=== PATIENT | female | born 1980 | race Caucasian/White ===

== ENCOUNTER 2016-08-01 12:27 | Outpatient (CLI) | payer OTHER ==
[2012-10-06 12:13] VITALS: TEMP 98.4
[2016-08-01 13:52] LABS: FERRITIN 19.94 ng/mL (4.63-204.00)
== END 2016-08-01 12:28 | disposition home or self-care (01) ==
LOC: LAB 12:27
PROVIDERS: ATTEND Nurse Practitioner Family
DX: D64.9 Anemia, unspecified (principal)
CPT/HCPCS: 36415; 82607; 82728; 83540; 83550; 84466

== ENCOUNTER 2016-08-08 08:58 | Outpatient (CLI) ==
[2012-10-06 12:13] VITALS: TEMP 98.4
--- NOTE | 2016-08-08 10:15 | CT ---
EXAM: CT of the abdomen and pelvis without and with IV contrast HISTORY: Generalized abdominal pain COMPARISON: 06/19/2015 ultrasound TECHNIQUE: CT of the abdomen and pelvis without and with IV contrast FINDINGS: The liver, gallbladder, spleen, adrenals, kidneys and pancreas enhance normally. No abnormal small bowel dilation is seen. The colon is unremarkable. The appendix is not abnormally dilated. No free air or free fluid is seen. A 2.7 cm right adnexal probable cyst is seen. Low density is see n extending around the cervix which could represent a pessary. There is slight prominence of the lef t pelvic veins. There is mild L5-S1 degenerative disc disease. A tiny fat containing umbilical her castillo is seen. IMPRESSION: No acute intra-abdominal findings. 2.7 cm probable right ovarian cyst.
== END 2016-08-08 08:59 | disposition home or self-care (01) ==
LOC: RAD 08:58
PROVIDERS: ATTEND Nurse Practitioner Family
DX: R10.84 Generalized abdominal pain (principal)

== ENCOUNTER 2017-03-18 07:55 | Day surgery (SDC) ==
[2017-03-18 08:51] LABS: URINE PREGNANCY INTERNAL QC INTERNAL QC VALID
[2017-03-18] MEDS ORDERED: DIPRIVAN 20 ML VIAL IVP ONE (10:06)
[2017-03-18] MEDS ORDERED: LIDOCAINE HCL 2% LUER-JET ONE (10:06)
[2017-03-18] MEDS ORDERED: VERSED ONE (10:06)
[2017-03-18 14:08] VITALS: BP 122/81; TEMP 97.7
--- NOTE | 2017-03-19 12:38 | OP ---
INDICATIONS FOR PROCEDURE: 36-year-old female presents for endoscopy evaluation. She has been having long-standing reflux disease manifested by heartburn. She had a little bit of epigastric discomfort. She is scheduled for endoscopy investigation. She does have globus sensation at times too. MEDICATIONS: SEE ANESTHESIA NOTES. PROCEDURE: ENDOSCOPY, RALPH BIOPSY. REPORT: The risks, benefits, alternatives and limitations were discussed in detail with the patient. Informed consent was obtained. After adequate sedation was achieved, the video endoscope was introduced in the posterior pharynx and esophagus under direct vision and easily advanced down to the second portion of the duodenum. I then slowly withdrew. The duodenal mucosa appeared unremarkable as did the duodenal bulb. The antrum and body were relatively unremarkable. Two biopsies from the antrum, one from the body obtained for H. Pylori testing. The scope was retroflexed to look at the cardia and fundus which was unremarkable. The scope was anteflexed and withdrawn back through the esophagus and this was normal. GE junction was at the top of the gastric folds at the diaphragmatic hiatus. The patient tolerated the procedure well with stable vital signs and pulse oximetry throughout. IMPRESSION: 1. NORMAL ENDOSCOPY EXAM. RECOMMENDATIONS: 1. Strict reflux precautions and I will go over these with the patient again. 2. Await H. Pylori, if positive will initiate treatment. 3. Will see her back in the office as needed. CC: DR. JESSICA KRISHNAN
== END 2017-03-18 11:40 | disposition home or self-care (01) ==
LOC: SURG 07:55
PROVIDERS: ATTEND Internal Medicine Gastroenterology
DX: K21.9 Gastro-esophageal reflux disease without esophagitis (principal); R10.13 Epigastric pain; R12 Heartburn
CPT/HCPCS: 81025; 87339

== ENCOUNTER 2017-05-16 12:22 | Outpatient (CLI) ==
[2012-10-06 12:13] VITALS: TEMP 98.4
--- NOTE | 2017-05-16 14:33 | US ---
EXAM: THYROID ULTRASOUND HISTORY: Thyroid nodule FINDINGS: Ultrasound thyroid. Real time mays-scale ultrasound and color Doppler imaging. COMPARISON: 08/04/2014 The right thyroid lobe measures 5.9 x 2.1 x 1.6 cm. The isthmus measures 0.5 cm. The left thyroid lobe measures 5.3 x 1.7 x 1.3 cm. There were approximately seven nodules identified, four on the right and three on the left. These no dules were tiny and cystic (about 3 mm, with exception the two inferior right lobe entities which camelia sured 0.8 x 0.8 x 0.8 and 0.7 x 0.4 x 0.8 cm. These latter two nodules were solid and hypoechoic wit h no internal atypia. The thyroid tissue was otherwise homogeneous with normal glandular blood flow. When compared to the prior study, the gland size appears stable. The two hypoechoic solid nodules on the right mentioned in the above report were not seen previously possibly secondary to differences i n scanning technique or interval development. IMPRESSION: Several scattered bilateral nodules most which are tiny and cystic. There may have been interval development of two small hypoechoic solid nodules inferiorly on the right versus not seen pr eviously secondary to differences in scanning technique. Overall gland size is stable.
== END 2017-05-16 12:23 | disposition home or self-care (01) ==
LOC: RAD 12:22
PROVIDERS: ATTEND Nurse Practitioner Family
DX: Z00.00 Encounter for general adult medical examination without abnormal findings (principal); E04.1 Nontoxic single thyroid nodule; R13.10 Dysphagia, unspecified
CPT/HCPCS: 36415; 80053; 80061; 84443; 85025

== ENCOUNTER 2018-01-06 08:20 | Outpatient (CLI) ==
[2012-10-06 12:13] VITALS: TEMP 98.4
--- NOTE | 2018-01-06 10:29 | MRI ---
EXAM: Brain MRI without contrast. HISTORY: Headache. COMPARISON: None. TECHNIQUE: Multiplanar, multisequence MR images were acquired of the brain without contrast. FINDINGS: The midline structures are central and the craniocervical junction is unremarkable. The v entricles and sulci are normal in size and configuration. There are no abnormal extra-axial fluid co llections. The brain parenchyma has no diffusion restriction to suggest acute hypoperfusion or infarction. Ther e is a single 1.5 mm T2 hyperintensity in the anterior inferior left frontal subcortical white matter (image #15) which is nonspecific. There is minor bilateral occipital periventricular faint FLAIR hy perintensity which is considered normal. There are no abnormal foci of dark gradient echo signal. Th e corpus callosum is normal. The pituitary gland is small. No intraorbital masses are present. There is mildly increased fluid in the optic nerve sheaths witho ut flattening of the optic nerve heads at the insertions. Probably this represents normal visualizat ion of the cerebrospinal fluid around the optic nerves which is better demonstrated due to slice edelmira ction in the plane of the optic nerves. Minor mucosal thickening and a small mucous retention cyst a re present in the left maxillary sinus. There is minor rightward nasal septal deviation. Remainder of the paranasal sinuses are clear. There is membrane thickening in the left mastoid air cells and m inor opacification of a right mastoid air cell. Mild to moderate adenoidal hypertrophy with a few ti ny nasopharyngeal submucosal cysts is present. This is considered within normal variation for the pa tient's age. Flow voids are present in the major intracranial arteries and dural venous sinuses. IMPRESSION: 1. No intracranial mass, hemorrhage or acute cerebral infarct. 2. Small pituitary gland.
== END 2018-01-06 08:21 | disposition home or self-care (01) ==
LOC: RAD 08:20
PROVIDERS: ATTEND Nurse Practitioner Family
DX: R51 Headache (principal); H53.9 Unspecified visual disturbance; Q14.2 Congenital malformation of optic disc

== ENCOUNTER 2018-05-20 10:17 | Outpatient (CLI) ==
[2012-10-06 12:13] VITALS: TEMP 98.4
--- NOTE | 2018-05-20 11:32 | DI ---
EXAM: Two views of the chest. History: Cough. Comparison: Chest radiograph 01/05/2016 Findings: Heart size is normal. No focal consolidation. No appreciable pleural fluid and no pneumo thorax. No acute osseous abnormalities. Impression: No acute cardiopulmonary process
== END 2018-05-20 10:18 | disposition home or self-care (01) ==
LOC: RAD 10:17
PROVIDERS: ATTEND Nurse Practitioner Family
DX: R05 Cough (principal); R50.9 Fever, unspecified; J02.9 Acute pharyngitis, unspecified
CPT/HCPCS: 87502; 87651

== ENCOUNTER 2018-05-20 11:04 | Outpatient (CLI) | payer OTHER ==
[2012-10-06 12:13] VITALS: TEMP 98.4
== END 2018-05-20 11:05 | disposition home or self-care (01) ==
LOC: RHC-LAB 11:04
PROVIDERS: ATTEND Nurse Practitioner Family
DX: R05 Cough (principal); J02.9 Acute pharyngitis, unspecified

== ENCOUNTER 2018-10-06 13:52 | Outpatient (CLI) ==
[2012-10-06 12:13] VITALS: TEMP 98.4
== END 2018-10-06 13:53 | disposition home or self-care (01) ==
LOC: LAB 13:52
PROVIDERS: ATTEND Family Medicine
DX: R10.13 Epigastric pain (principal)
CPT/HCPCS: 87338